=== PATIENT | male | born 1965 | race Caucasian/White ===

== ENCOUNTER 2017-09-19 12:12 | Outpatient (CLI) | payer BC | END 2017-09-19 12:13 | disposition home or self-care (01) | LOC: LAB 12:12 | PROVIDERS: ATTEND Internal Medicine | DX: Z11.1 Encounter for screening for respiratory tuberculosis (principal) | CPT/HCPCS: 36415; 81599; 86317; 86480; 86735; 86762; 86765; 86787 ==

== ENCOUNTER 2018-01-20 16:35 | Outpatient (CLI) | payer BC ==
--- NOTE | 2018-01-21 09:50 | Ultrasound Report ---
Reason: RUQ PAIN Procedure Date: 01/20/2018 Accession Number: [id number] / [id number] Procedure: US - Abdomen Limited CPT Code: FULL RESULT: EXAM: ABDOMEN ULTRASOUND LIMITED, RUQ EXAM DATE: 01/20/2018 05:22 PM. CLINICAL HISTORY: RUQ pain. COMPARISON: None. TECHNIQUE: Real-time scanning was performed with static images obtained. FINDINGS: Liver: Background parenchyma is normal in size and echotexture. The liver contains a solitary 1 cm well-circumscribed echogenic lesion in the left lobe and the right lobe measures at least 13.6 cm. Main portal vein flow: Hepatopetal. Gallbladder: Normal. No stones, wall thickening, or sonographic Santos's sign. Biliary System: CBD measures 4 mm. No intrahepatic or extrahepatic ductal dilatation. Other: The right kidney measures 10.4 cm in long axis and appears unremarkable. IMPRESSION: Solitary echogenic left lobe of the liver mass. Most commonly echogenic liver lesions are benign hemangioma. In patients with a risk of malignancies, other entities, though less likely, must be considered. If the patient has risk factors, definitive characterization by MRI hepatic mass protocol or alternatively CT hepatic mass protocol could be considered. [facility]
== END 2018-01-20 16:36 | disposition home or self-care (01) ==
LOC: DI 16:35
PROVIDERS: ATTEND Internal Medicine
DX: R10.11 Right upper quadrant pain (principal); R16.0 Hepatomegaly, not elsewhere classified
CPT/HCPCS: 76705

== ENCOUNTER 2018-12-24 13:34 | Outpatient (CLI) | payer BC | END 2018-12-24 13:35 | disposition home or self-care (01) | LOC: LAB 13:34 | PROVIDERS: ATTEND Internal Medicine | DX: R76.12 Nonspecific reaction to cell mediated immunity measurement of gamma interferon antigen response without active tuberculosis (principal); Z11.1 Encounter for screening for respiratory tuberculosis | CPT/HCPCS: 36415; 81599; 86480 ==